=== PATIENT | female | born 1940 | race Caucasian/White ===

== ENCOUNTER 2017-04-03 17:05 | Inpatient (IN) ==
[2017-04-03] MEDS ORDERED: NS 1,000 ML IV SCH (17:45)
[2017-04-03] MEDS: NS 1,000 ML IV SCH (17:47)
[2017-04-03] MEDS ORDERED: LEVOFLOXACIN 500 MG/100 ML PREMIX IV SCH (18:30)
[2017-04-03 18:42] VITALS: BMI 27.1
[2017-04-03] MEDS: CLINDAMYCIN 600 MG/50 ML IV SCH (18:59)
[2017-04-03] MEDS ORDERED: LORazepam 0.5 MG TABLET PO PRN (19:26)
[2017-04-03] MEDS: POM AMLODIPINE 10 MG TABLET PO SCH (20:05)
[2017-04-04] MEDS: CLINDAMYCIN 600 MG/50 ML IV SCH ×2 (02:32→10:29)
[2017-04-04] MEDS: NS 1,000 ML IV SCH (06:37)
[2017-04-04] MEDS: LEVOTHYROXINE 200 MCG PO SCH (07:16)
[2017-04-04] MEDS: POM AMLODIPINE 10 MG TABLET PO SCH (10:29)
[2017-04-04] MEDS ORDERED: BUPIVACAINE 0.5%/EPI 1:200,000 INJ 30ml SDV ONE (12:46)
[2017-04-04] MEDS ORDERED: INDOCYANINE GREEN 25mg INJECTION ONE (12:47)
[2017-04-04] MEDS ORDERED: NS 1,000 ML IV SCH (13:15)
[2017-04-04] MEDS ORDERED: SALINE FLUSH 10ml SYRINGE ONE (14:39)
[2017-04-04] MEDS ORDERED: SALINE FLUSH 10ml SYRINGE IV ONE (14:40)
[2017-04-04] MEDS ORDERED: FentaNYL 250 MCG/5 ML INJECTION ONE (14:40)
[2017-04-04] MEDS ORDERED: INDOCYANINE GREEN 25mg INJECTION IVP ONE (14:40)
[2017-04-04] MEDS ORDERED: PROPOFOL 20 ML ONE (14:41)
[2017-04-04] MEDS ORDERED: ROCURONIUM 50 MG/5 ML INJECTION IVP ONE (14:41)
[2017-04-04] MEDS ORDERED: LACRI-LUBE EYE OINT 3.5gm ONE (14:43)
[2017-04-04] MEDS ORDERED: ONDANSETRON 4 MG/2 ML INJECTION ONE (15:08)
[2017-04-04] MEDS ORDERED: DEXAMETHASONE 4 MG/ML INJECTION ONE (15:08)
[2017-04-04] MEDS ORDERED: BUPIVACAINE 0.25%/EPI 1:200,000 30ml SDV ID ONE (15:09)
[2017-04-04] MEDS ORDERED: GLYCOPYRROLATE 0.4 MG/2 ML INJECTION ONE (15:09)
[2017-04-04] MEDS ORDERED: SUGAMMADEX 200mg/2ml INJECTION IVP ONE (15:42)
[2017-04-04] MEDS ORDERED: FentaNYL 100 MCG/2 ML INJECTION ONE (16:14)
--- NOTE | 2017-04-04 16:22 | Cardiology Consult Note ---
<Alicia Eaton - Last Filed: 04/05/17 10:41> History of Present Illness Consult date: 04/04/17 Requesting physician: Arthur Mcneil Consult reason: pre-op evaluation Chief complaint: cardiac eval History of present illness: Alisia is a 76 year old female who has a history of HTN, HLD, drug induced Hepatitis, thyroid and skin cancer who is admitted for elective cholecystectomy by Dr. Mcneil. Dr. Rowley is consulted to evaluate pre-operatively due to LBBB on EKG and we appreciate the consult. Review of Systems - Constitutional Constitutional: Absent: chills, fatigue, fever(s) - EENMT Eyes: Absent: change in vision Balance: Absent: vertigo Mouth/Throat: Absent: sore throat - Cardiovascular Cardiovascular: Absent: chest pain, palpitations, syncope, dyspnea on exertion Rhythm: Absent: abnormal rhythm Vascular: Absent: pedal edema - Respiratory Respiratory: Absent: cough, dyspnea on exertion - Gastrointestinal Gastrointestinal: Absent: diarrhea, nausea, vomiting - Genitourinary Genitourinary: Absent: dysuria - Integumentary/Breasts Integumentary: Absent: rash - Neurological Neurological: Absent: dizziness - Endocrine Endocrine: Absent: palpitations PFSH Patient Stated Medical History Cataracts Yes Hypertension Yes Pneumonia Yes: 1940 Sleep Apnea No Hepatitis Yes: EES - DRUG INDUCED Other Yes: STAGE 3 CKD Osteoarthritis Yes Other Infectious Yes: LICHEN PLANUS IN MOUTH/LEG Clinic Medical History (Last Updated 04/03/17 @ 16:10 by Pam Holland, CHRISTOS) Postsurgical hypothyroidism (Chronic Medical ~1978) Clinically euthyroid with slight elevation of FT4. Thyroid cancer (Inactive Medical ~1998) Still no clinical evidence of recurrence. Hyperparathyroidism , secondary, non-renal (Chronic Medical) Mild and steadily improving with normal calcium level. Vitamin D deficiency (Chronic Medical) Currently adequately replaced. Anxiety (Acute Medical) Arthritis (Acute Medical) Chronic kidney disease (CKD) stage G3a/A1, moderately decreased glomerular filtration rate (GFR) between 45-59 mL/min/1.73 square meter and albuminuria creatinine ratio less than 30 mg/g (Acute Medical) Depression (Acute Medical) Diastolic CHF (Acute Medical) HTN (hypertension) (Acute Medical) Left bundle branch block (Acute Medical) Pulmonary HTN (Acute Medical) Surgical History: Appendix;194, Tonsillectomy; Thyroidectomy;1978, Hysterectomy ;1978, Hernia;1978, Thyroidectomy;1998, Right knee;2008 Family History: Family History (Last Reviewed 09/26/16 @ 10:16 by Kai Hendrix MD) Father Diabetes Heart disease Mother HTN (hypertension) - Social History Smoking status: Never smoker Substance use type: does not use Alcohol intake frequency: does not drink Current occupational status: retired Current residence: Apartment/Private Home Medications Home Medications Medication Instructions Recorded Confirmed Type Pravachol (pravastatin) 20 mg 20 mg PO HS tab 09/17/16 04/03/17 History tablet Triderm (Triamcinolone acetonide 1 applicatio TOP .prn PRN g 09/17/16 04/03/17 History 0.1 %) topical cream levothyroxine 200 mcg tablet 200 mcg PO .mon-fri tab 09/17/16 04/03/17 History Klor-Con M20 (potassium chloride 20 meq PO DAILY tab 09/26/16 04/03/17 History ER) 20 mEq tablet,(part/cryst) Norvasc (amlodipine) 10 mg tablet 10 mg PO DAILY #0 tab 09/26/16 04/03/17 History coenzyme Q10 100 mg capsule 200 mg PO HS cap 09/26/16 04/03/17 History torsemide 20 mg tablet 20 mg PO QAM 09/26/16 04/03/17 History Ativan (lorazepam) 0.5 mg tablet 0.5 mg PO HS PRN 04/03/17 04/03/17 History Cholecalciferol (Vitamin D3) 1 cap PO DAILY 04/03/17 04/03/17 History [Vitamin D3] Cholecalciferol (Vitamin D3) 1 tab PO HS 04/03/17 04/03/17 History [Vitamin D3] Spironolactone [Aldactone] 25 mg PO DAILY 04/03/17 04/03/17 History Allergies Allergy/AdvReac Type Severity Reaction Status Date / Time Sulfa (Sulfonamide Allergy Severe Hives Verified 04/03/17 17:35 Antibiotics) Penicillins Allergy Mild Red rash Verified 04/03/17 17:35 and swelling erythromycin base AdvReac Severe Jaundice, Verified 04/03/17 17:35 liver inflammation metronidazole AdvReac Intermediate NAUSEA Verified 04/03/17 17:35 Exam Vital signs: Temperature 98.3 F 04/04/17 13:00 Pulse Rate 57 L 04/04/17 13:56 Respiratory Rate 16 04/04/17 13:00 Blood Pressure 159/89 H 04/04/17 13:43 Pulse Oximetry 96 04/04/17 13:00 - Constitutional no acute distress, well nourished, cooperative - Routine HEENT Exam Head: Present: normocephalic ENT: Present: mucous membranes moist - Routine Neck Exam Absent: JVD, carotid bruit - Routine Chest/Breast/Axilla Exam Chest wall: Absent: tenderness - Routine Respiratory Exam Present: CTA bilaterally. Absent: rales, wheezes - Routine Cardiovascular Exam Present: RRR, no murmur - Routine Abdominal Exam Present: soft, normoactive bowel sounds - Routine Extremities Exam Present: no edema - Routine Skin Exam Present: intact, dry, warm - Routine Neurological Exam Present: alert, oriented X3 - Routine Psychiatric Exam Present: normal affect, normal thought process Results 04/04/17 04:07 04/04/17 04:07 Cardiac Enzymes 04/04/17 Range/Units 04:07 AST 15 (14-36) U/L CBC 04/04/17 Range/Units 04:07 WBC 2.4 L (4.5-11.0) T/MM3 RBC 3.94 L (4.00-5.20) M/MM3 Hgb 11.6 L D (12-16) GM/DL Hct 35.1 L D (36-46) % Plt Count 86 L (130-400) T/MM3 Neut # (Auto) 1.1 L (1.8-7.7) T/MM3 Lymph # (Auto) 0.9 L (1-4.8) T/MM3 [place] # (Auto) 0.3 (0-0.8) T/MM3 Eos # (Auto) 0.1 (0-0.5) T/MM3 Baso # (Auto) 0.0 (0-0.2) T/MM3 Comprehensive Metabolic Panel 04/04/17 Range/Units 04:07 Sodium 145 H (134-144) MEQ/L Potassium 3.6 D (3.6-5) MEQ/L Chloride 108 H D (98-107) MEQ/L Carbon Dioxide 24 (22-30) MEQ/L BUN 28.0 H (7-17) MG/DL Creatinine 0.9 D (0.7-1.2) MG/DL Glucose 97 (65-110) MG/DL Calcium 9.0 D (8.4-10.2) MG/DL AST 15 (14-36) U/L ALT 27 (9-52) U/L Alkaline Phosphatase 43 D (38-126) U/L Total Protein 6.6 (6.3-8.2) G/DL Albumin 3.9 (3.5-5.0) G/DL Intake and Output 04/04/17 04/04/17 04/04/17 06:59 14:59 22:59 Intake Total 915 / 915 491.25 / 491.25 Balance 915 / 915 491.25 / 491.25 Intake: IV 915 / 915 491.25 / 491.25 Clindamycin Pb 600 mg In 50 ml 50 / 50 50 / 50 @ 100 mls/hr IV Q8H JERRICA Rx#: [id number] Ns 1,000 ml @ 75 mls/hr IV . 865 / 865 441.25 / 441.25 [id number] JERRICA Rx#:[id number] Other: # Voids 1 1 Weight 171 lb 1.259 oz Patient Weight 04/05/17 06:59 Weight 171 lb 1.259 oz - Imaging and Cardiology Echo: pending EKG interpretations - EKG EKG shows: bradycardia - Blocks, axis, hypertrophy, ST abn AV and intraventricular conduction: left bundle branch block (fixed/intermittent , complete/incomplete) Assessment and Plan - Assessment and Plan (1) Preop cardiovascular exam Status: Acute Patient has few risk factors for cardiac complications from planned surgical procedure. - We will follow along with you should you need our assistance. - 2D echo pending. Thank you for allowing us to participate in the care of your patient. - Assessment and Plan Patient has few risk factors for cardiac complications from planned surgical procedure. - We will follow along with you should you need our assistance. - 2D echo pending. Thank you for allowing us to participate in the care of your patient. Hospital Course Summary Disclaimer: The visit summary below is not to be considered part of the above Progress Note. 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 Thyroid cancer (Inactive Medical ~1998) Still no clinical evidence of recurrence. Hyperparathyroidism , secondary, non-renal (Chronic Medical) Mild and steadily improving with normal calcium level. Vitamin D deficiency (Chronic Medical) Currently adequately replaced. Anxiety (Acute Medical) Arthritis (Acute Medical) Chronic kidney disease (CKD) stage G3a/A1, moderately decreased glomerular filtration rate (GFR) between 45-59 mL/min/1.73 square meter and albuminuria creatinine ratio less than 30 mg/g (Acute Medical) Depression (Acute Medical) Diastolic CHF (Acute Medical) HTN (hypertension) (Acute Medical) Left bundle branch block (Acute Medical) Pulmonary HTN (Acute Medical) Family History: Family History (Last Reviewed 09/26/16 @ 10:16 by Kai Hendrix MD) Father Diabetes Heart disease Mother HTN (hypertension) Exam Vital signs: Temperature 98.1 F 04/05/17 07:46 Pulse Rate 56 L 04/05/17 07:46 Respiratory Rate 12 04/05/17 07:46 Blood Pressure 115/45 04/05/17 07:46 Pulse Oximetry 99 04/05/17 07:46 Results 04/04/17 04:07 04/04/17 04:07 Assessment and Plan - Attestation Attestation Narrative: 04/08/17 10:45 Recommendation After examining the patient I agree with the above assessment. I am involved in the formulation of the patient's plan of care. - Assessment and Plan (1) Preop cardiovascular exam Status: Acute Hospital Course Summary Disclaimer: The visit summary below is not to be considered part of the above Progress Note.
--- NOTE | 2017-04-04 16:36 | General Surgery Procedure Note ---
Date of Procedure: 04/04/17 Surgeon: Ewa Heel Stainer: Kai Holland APRN Postoperative Diagnosis: Symptomatic cholelithiasis Procedure: Robotic assisted laparoscopic cholecystectomy with [facility] [facility] Estimated Blood Loss: See Anesthesia Record.
--- NOTE | 2017-04-04 16:56 | Anesthesia Preoperative Report ---
Anesthesia Preoperative Record - Date and Time Date: 04/04/17 Preoperative Diagnosis: acute cholecystitis NPO Since Date: 04/03/17 NPO Since Time: 00:00 Allergies/Adverse Reactions: Allergies Allergy/AdvReac Type Severity Reaction Status Date / Time Sulfa (Sulfonamide Allergy Severe Hives Verified 04/03/17 17:35 Antibiotics) Penicillins Allergy Mild Red rash Verified 04/03/17 17:35 and swelling erythromycin base AdvReac Severe Jaundice, Verified 04/03/17 17:35 liver inflammation metronidazole AdvReac Intermediate NAUSEA Verified 04/03/17 17:35 - Vital Signs Vital Signs: Temperature 97.0 F 04/04/17 16:24 Pulse Rate 62 04/04/17 16:45 Respiratory Rate 21 04/04/17 16:45 Blood Pressure 140/64 H 04/04/17 16:45 Pulse Oximetry 95 04/04/17 16:45 Height and Weight: Height 1.68 m Weight 77.6 kg Body Mass Index 27.1 - Medications Inpatient Medications: Current Medications Amlodipine Besylate (Norvasc) 10 mg PO DAILY [facility] Last Admin: 04/04/17 10:29 Dose: 10 mg Clindamycin Phosphate (Cleocin Premix) 600 mg in 50 mls @ 100 mls/hr IV Q8H [facility] Last Infusion: 04/04/17 10:59 Dose: Infused Levofloxacin/Dextrose (Levaquin Premix) 500 mg in 100 mls @ 100 mls/hr IV Q24H [facility] Last Infusion: 04/03/17 21:04 Dose: Infused Sodium Chloride (Normal Saline) 1,000 mls @ 50 mls/hr IV .Q20H [facility] Last Admin: 04/04/17 13:14 Dose: 50 mls/hr Levothyroxine Sodium (Synthroid) 200 mcg PO [id number] [facility] Last Admin: 04/04/17 07:16 Dose: Not Given Lorazepam (Ativan) 0.5 mg PO HS PRN PRN Reason: Anxiety Home Medications: Home Medications Medication Instructions Recorded Confirmed Type Pravachol (pravastatin) 20 mg 20 mg PO HS tab 09/17/16 04/03/17 History tablet Triderm (Triamcinolone acetonide 1 applicatio TOP .prn PRN g 09/17/16 04/03/17 History 0.1 %) topical cream levothyroxine 200 mcg tablet 200 mcg PO .mon-fri tab 09/17/16 04/03/17 History Klor-Con M20 (potassium chloride 20 meq PO DAILY tab 09/26/16 04/03/17 History ER) 20 mEq tablet,(part/cryst) Norvasc (amlodipine) 10 mg tablet 10 mg PO DAILY #0 tab 09/26/16 04/03/17 History coenzyme Q10 100 mg capsule 200 mg PO HS cap 09/26/16 04/03/17 History torsemide 20 mg tablet 20 mg PO QAM 09/26/16 04/03/17 History Ativan (lorazepam) 0.5 mg tablet 0.5 mg PO HS PRN 04/03/17 04/03/17 History Cholecalciferol (Vitamin D3) 1 cap PO DAILY 04/03/17 04/03/17 History [Vitamin D3] Cholecalciferol (Vitamin D3) 1 tab PO HS 04/03/17 04/03/17 History [Vitamin D3] Spironolactone [Aldactone] 25 mg PO DAILY 04/03/17 04/03/17 History Is Patient on Beta Juan?: No - Medical History Respiratory: Reports: Pneumonia (194) DENIES: Sleep Apnea Cardiovascular: Reports: Abnormal EKG, Congestive Heart Failure (diastolic CHF) , Hypertension (and pulmonary HTN), Valvular Heart Disease (TR and MR) Gastrointestional: Reports: Hepatitis (EES - DRUG INDUCED) DENIES: Nausea or Vomiting Present Neuro/Musculoskeletal: Reports: HX.MS.OSAR, Depression (and anxiety) Renal/Endocrine: Reports: Thyroid Disease (RADIOACTIVE IODINE/CANCER), Other ( CKD per patient history) Other History: Reports: Cancer (thyroid), Other (ITP) - Surgical History HEENT Surgeries: Reports: Eye Surgery (CATARACTS), Tonsillectomy Endocrine Surgery/Treatments: Reports: Thyroidectomy GI Surgery/Treatments: Reports: Appendectomy, Colonoscopy, Other (UMBILICAL HERNIA) Musculoskeletal Surgery/Tx: Reports: Knee Arthroscopy (RIGHT), Total Knee Replacement (R TKA) Reproductive Surgery/Treatment: Reports: Hysterectomy Anesthesia Reactions: None Hx Family Anesthesia Reaction: No History of Motion Sickness: No - Social History Smoking Status: Never smoker Hx Chewing Tobacco Use: No Second Hand Exposure: No Substance Use Type: does not use Alcohol Intake: never Alcohol Intake Frequency: does not drink - Pertinent Findings Laboratory: CBC and BMP 04/04/17 04:07 04/04/17 04:07 BMP 04/04/17 04:07 Sodium 145 H Potassium 3.6 D Chloride 108 H D Carbon Dioxide 24 BUN 28.0 H Creatinine 0.9 D Glucose 97 Calcium 9.0 D Liver Function 04/04/17 Range/Units 04:07 Total Bilirubin 0.50 (0.20-1.30) MG/DL AST 15 (14-36) U/L ALT 27 (9-52) U/L Alkaline Phosphatase 43 D (38-126) U/L Albumin 3.9 (3.5-5.0) G/DL EKG: Sinus Rhythm, First Degree AV Block EKG Ectopy: Bundle Branch Block (left) - Physical Exam Respiratory Exam: Present: lungs clear, bilateral breath sounds equal Cardiovascular Exam: Present: regular rate and rhythm - Airway Assessment Mallampati Score: II TMD: 3 Fingerbreadths Neck Extension: fair Overall Assessment: no airway concerns - ASA ASA Score: 3 - Plan Anesthesia: General Inhalation Gases - Discussion Discussion: Discussed risks/options/alternatives of anesthesia and questions answered. Patient consents. Nursing pain assessment noted. Attestation Statement: Prior to the delivery of any anesthetic medication, I examined the patient, developed the plan, obtained the patient's consent and discussed the risk and benefits of the procedure with the patient/guardian. - Additional Information Seen by Anesthesia: Yes
--- NOTE | 2017-04-04 16:59 | Anesthesia Postoperative Note ---
- Date and Time Date: 04/04/17 Time: 16:58 - Status Patient Participated in Evaluation: Patient Participated in Person Vital Signs: Temperature 97.0 F 04/04/17 16:24 Pulse Rate 62 04/04/17 16:45 Respiratory Rate 21 04/04/17 16:45 Blood Pressure 140/64 H 04/04/17 16:45 Pulse Oximetry 95 04/04/17 16:45 Respiratory Function: Airway Patent, Regular Respirations Cardiovascular Function: Regular Pulse Mental Status: Alert and Oriented Pain Intensity: 3 Hydration: IV Infusing Complications During Recover: None Apparent - Follow-Up Instructions Instructions: Per Surgeon
[2017-04-04] MEDS ORDERED: ACETAMINOPHEN 325 MG TABLET PO PRN (17:45)
[2017-04-04] MEDS ORDERED: MORPHINE SULFATE 4mg INJECTION IVP PRN (17:45)
[2017-04-05 04:26] VITALS: RESP 12
[2017-04-05] MEDS: LEVOTHYROXINE 200 MCG PO SCH (06:12)
[2017-04-05] MEDS ORDERED: HYDROCODONE/APAP 5mg/325mg TABLET PO PRN (07:23)
[2017-04-05 07:47] VITALS: BP 115/45; PULSE 56; TEMP 98.1; O2SAT 99
[2017-04-05] MEDS: POM AMLODIPINE 10 MG TABLET PO SCH (08:59)
[2017-04-05] MEDS ORDERED: SPIRONOLACTONE 25 MG TABLET PO SCH (09:00)
--- NOTE | 2017-04-05 10:36 | General Surgery Progress Note ---
Subjective Patient reports: feels better, pain is less, tolerating a regular diet, afebrile Narrative: States she has not needed any pain medication. She ate a full regular breakfast without difficulty. We talked about her pancytopenia, we will get an appointment with Dr. Muniz, who can then arrange for gate keeper. Patient had a bone biopsy in 2010 for "low platelet count" and was told that she makes enough platelets but that her body "eats them up." Discussed post op care. She cannot take NSAIDS due to the CKD, but so far has not had the need for any pain meds. - Vital Signs Last Vital Signs Temp 98.1 F 04/05/17 07:46 Pulse 56 L 04/05/17 07:46 Resp 12 04/05/17 07:46 BP 115/45 04/05/17 07:46 Pulse Ox 99 04/05/17 07:46 - Laboratory Result Diagrams: 04/04/17 04:07 04/04/17 04:07 - Normal Exam General: awake, alert, oriented, no acute distress Cardiovascular: regular rate Respiratory: no labored breathing Abdominal: soft, non-tender, incision(s) (CDI DermaBond glue in tact) Assessment and Plan (1) Symptomatic cholelithiasis Current Visit: Yes Status: Acute (2) Preop cardiovascular exam Current Visit: Yes Status: Acute Plan: Robotic lab zakiya yesterday went well. Cardiac evaluation obtained and fund EF about 68-70%. LBBB is chronic, there is mild thickening of the ventral wall. No further work-up recommended at this time. Amrik reports will be sent to Dr. Carrera in [place] (her racker oct[employer] board that she sees once a year). Routine post op April 23. Hospital Course Summary Disclaimer: The visit summary below is not to be considered part of the above Progress Note.
--- NOTE | 2017-04-05 19:10 | Echocardiogram ---
DATE OF PROCEDURE 04/04/2017 This is a two-dimensional echo with spectral Doppler, color-flow and M-mode. It was obtained in a patient with abnormal EKG. Left atrium is dilated. Left ventricular end-diastolic dimension is normal. Left ventricular wall thickness is increased. LV systolic function is normal with ejection fraction of about 58%. Right atrium is normal. Right ventricle is normal. Aortic root dimension is normal. Mitral valve is morphologically normal with moderate mitral regurgitation. Aortic valve is a trileaflet structure with no stenosis or insufficiency. Tricuspid valve shows moderate tricuspid regurgitation with mild pulmonary hypertension with estimated pulmonary artery systolic pressure of 33. Pulmonary valve shows trace of pulmonary insufficiency. There is no pericardial effusion. IMPRESSION 1. Left atrial dilation. 2. Concentric left ventricular hypertrophy. 3. Normal LV systolic function with ejection fraction of 58%. 4. Moderate mitral regurgitation. 5. Moderate tricuspid regurgitation with mild pulmonary hypertension with estimated pulmonary artery systolic pressure of 33. 6. Trace of pulmonary insufficiency. MTDD
--- NOTE | 2017-04-05 19:49 | Operative Note ---
DATE OF SERVICE 04/04/2017 SURGEON Arthur Mcneil MD PL SQL DEVELOPER Kai Holland APRN PREOPERATIVE DIAGNOSIS Symptomatic cholelithiasis. POSTOPERATIVE DIAGNOSIS Symptomatic cholelithiasis. PROCEDURE Robotic-assisted laparoscopic cholecystectomy with use of Firefly biliary imaging. ANESTHESIA General endotracheal. EBL/FLUIDS Please see chart. BRIEF HISTORY/INDICATIONS Mrs. Castillo is a 76-year-old female whom I saw yesterday in my clinical practice /surgical office as a result of her history and physical findings of right upper quadrant abdominal pain, nausea, and finding of cholelithiasis upon ultrasonography. It was felt the patient was suffering from symptomatic cholelithiasis/acute cholecystitis. The patient was subsequently admitted to the hospital and begun on broad-spectrum antibiotics. It was recommended to the patient that she undergo cholecystectomy as a result of the above indication. For completeness please refer to notes included in the patient's chart. FINDINGS Upon laparoscopy the patient was found to have a fair amount of adhesions as a result of her prior surgeries in the past. Perhaps 15-20 minutes were spent performing adhesiolysis to gain access into the peritoneal cavity and access to the right upper quadrant. The liver itself was found to be smooth without nodularities. The gallbladder was found to be adhered to the adjacent omentum indicative of prior inflammation. Gallbladder wall did appear slightly thickened and contained a slight component of pericholecystic edema. A standard cholecystectomy was able to be completed without incident. NARRATIVE OF PROCEDURE After informed consent was obtained the patient was brought to the operative suite and placed on the table in supine fashion. The abdomen was prepped and draped in sterile fashion. Formal time-out was then completed. 0.25% Marcaine with epinephrine was injected just beneath the umbilicus. A 2-cm curved incision was made through the area of analgesia. Dissection was carried down into deep subcuticular tissues to underlying fascia. The fascia was then grasped with Kendra clamps and retracted anteriorly. A 1-cm incision was made between the two Kendra clamps. Hemostat was then introduced into the fascial incision gently spread. U-stitch was placed with 0-Vicryl. 12-mm camera port was then placed through the fascial opening and pneumoperitoneum was established to a patient pressure of 15 mmHg utilizing carbon dioxide. Laparoscope was then inserted into the infraumbilical trocar. One could see some adhesions within the abdominal cavity. There were no adhesions within the left upper quadrant. An 8-mm da Antonella port was placed under direct visualization within the left upper quadrant. Next, utilizing laparoscopic scissors the adhesions within the right upper quadrant were taken down under direct visualization. An additional 5-mm assist port was then placed along the right lateral abdominal wall. Grasper and scissors were placed through the right lateral port site and additional adhesiolysis was performed within the right mid abdomen. There was a moderate amount of omentum that was adherent to the anterior abdominal wall as a result of the patient's prior history for ruptured appendicitis and a prior history for open hysterectomy. Once additional adhesiolysis was completed under direct visualization an additional 8 -mm da Antonella port was then placed within the right lower quadrant. Each port site was preinjected with 0.25% Marcaine with epinephrine and placed under direct visualization. Next, the patient was then placed in reverse Trendelenburg and rotated towards her left. Robot was then docked overlying the patient's right shoulder. Fenestrated bipolar grasper was placed in robotic arm #2. Hook cautery was placed in robotic arm #1. I then proceeded to go to the console. I grabbed the fundal portion of the gallbladder and retracted it in an anterior fashion. My dental assistant medical assistant through the right lateral port then grasped the fundal portion of the gallbladder and continued to retract it in a cephalad and anterior fashion. There was a moderate amount of adhesions between the gallbladder and the adjacent omentum indicative of prior inflammation. Omentum was dissected off the gallbladder. Next, the infundibular portion of the gallbladder was then grasped with the fenestrated bipolar grasper and retracted in a lateral and slightly caudad fashion as to provide exposure to the triangle of Calot. Dissection was begun high upon the infundibulum of the gallbladder and dissection was continued until the only remaining structures coming forth from the infundibulum of the gallbladder were that of the cystic duct and cystic artery. Firefly biliary imaging was performed during the process of dissection. The cystic duct did fluoresce quite well. One could follow the cystic duct as it coursed down towards the common bile duct within the hepatoduodenal ligament. One could also see that the common bile duct fluoresced quite well within the hepatoduodenal ligament utilizing Firefly biliary imaging. Posterior aspect of the infundibulum was then continued to be freed until the critical view of safety had been completely obtained. A single Hem-o-Teresa clip was then placed upon the cystic artery upon the midportion of the infundibulum of the gallbladder. An additional Hem-o-teresa clip was placed proximally. Additional Hem-o-teresa clip was then placed upon the cystic duct adjacent to the infundibulum of the gallbladder. Additional Hem-o-teresa clip was then placed just proximally. Cystic duct and cystic artery were divided between the two Hem-o-teresa clips. Gallbladder was then continued be dissected off the liver bed fossa. One could also see that there was a separate branch of the cystic artery that coursed upon the posterior aspect of the infundibulum of the gallbladder. As stated above, the cystic artery was initially divided upon the midportion of the infundibulum of the gallbladder. Additional Hem-o-teresa clip was then placed upon the branch of the cystic artery as it coursed into the posterior aspect of the infundibulum of the gallbladder. Firefly biliary imaging was performed and this structure did not fluoresce. Small arterial branches were then divided distal to the Hem-o-teresa clip with use of electrocautery. The gallbladder was then continued to be dissected off the liver bed fossa with the use of electrocautery. Robot was then undocked. Gallbladder was removed from the infraumbilical port site. Irrigation was performed and all irrigant was suctioned until clear. One could see a very small area of bleeding along the gallbladder fossa. Utilizing a handheld hook cautery, this area was cauterized resulting in complete hemostasis. Additional irrigation was performed and all irrigant was suctioned again until clear. At this time the gallbladder fossa was completely hemostatic in nature. Previously placed Hem-o-Teresa clips were visualized and remained to be intact. Ports were removed under direct visualization. Pneumoperitoneum was then released. Camera port was then removed and the previously placed U-stitch at the infraumbilical fascial opening was then tied, resulting in imbrication of the fascia. All skin incisions were closed in a subcuticular fashion with 4-0 Monocryl. Dermabond was placed overlying the incisions. The patient tolerated the procedure without difficulty and will be sent back to recovery room once deemed in stable condition. Additionally, it should be noted that Kai Holland APRN, was present throughout the entire case and played a pivotal role in providing assistance and exposure during the course of the procedure. EMELY
== END 2017-04-05 12:27 | disposition home or self-care (01) | DRG 418 ==
LOC: SUR 17:05 → SRG 17:10
PROVIDERS: ADMIT Surgery; ATTEND Surgery